=== PATIENT | female | born 1940 | race Caucasian/White ===

== ENCOUNTER 2018-07-21 17:42 | Inpatient (IN) | payer MEDICARE, OTHER ==
[~2018-07-21] VITALS: Ht 160 cm; Wt 49.9 kg
[~2018-07-21 17:42] MED LIST: ALBU8.5H8 INH; BECL8.7A7 INH; BUDE10.2 INH; BUSP5POW PO; CEFD300C37 PO; CETI10TA24 PO; CLIN150C14 PO; DOXY100T PO; ESOM40CA PO; FLUT16SP NAS; FLUT50DI INH; FORM12CA INH; GUAI200T3 PO; HYDROCHLOROTH12.5 MG PO; LEVO88TA4 PO; LISI1TAB5 PO; LISI5TAB7 PO; PANT40TA5 PO; PRED10TA PO; PRED20TA PO; RALO60TA PO; RALO60TA12 PO; SUCR1TAB PO; TIOT18CA INH; [UNRECOGNIZED DRUG - CODE] IV
--- NOTE | 2018-07-21 17:44 | NUR ---
EKG DONE ON ARRIVAL TO ROOM
--- NOTE | 2018-07-21 17:45 | NUR ---
PT BIB EMS TO ED WITH SOB AND COPD EXACERBATION FOLLOWING SINUS INFECTION X3 DAYS. PT ON HOSPICE WITH [facility]. CONNECTED TO ALL MONITORS. 10L NRB UPON ARRIVALWITH DECREASED O2 SAT. O2 INCREASED TO 15L. O2 SAT INCREASED TO >85%. ALL OTHER VSS. FRIEND/POA AT BEDSIDE. WILL CONTINUE TO MONITOR.
--- NOTE | 2018-07-21 18:34 | NUR ---
MD TO BEDSIDE FOR ASSESSMENT. ATTEMPTING TO CONTACT [facility] TO DISCUSS TREATMENT OPTIONS. VSS. CALL LIGHT WITHIN REACH.
[2018-07-21] MEDS ORDERED: ALBUTEROL/IPRATROPIUM 2.5MG/0.5MG, 3 ML NPPB ONE (19:30)
--- NOTE | 2018-07-21 19:30 | NUR ---
pt states that she would like to revoke hospice and be aggressively treated at this time. extensive education provided by myself and [facility]. [facility] hospice nurse notified of pt's wishes. pt remains on 15L NRB with sats >85%. call light within reach. will continue to monitor.
[2018-07-21] MEDS ORDERED: ALBUTEROL/IPRATROPIUM 2.5MG/0.5MG, 3 ML ONE (19:36)
[2018-07-21 19:52] LABS: BASOPHILS # (AUTO) 0.03 x10^3/uL (0-0.1); BASOPHILS % (AUTO) 0 % (0-1); EOSINOPHILS # (AUTO) 0.01 x10^3/uL (0-0.4); EOSINOPHILS % (AUTO) 0 % (1-7); LYMPHOCYTES # (AUTO) 1.26 x10^3/uL (1-3.4); LYMPHOCYTES % (AUTO) 12 % (22-44); MD NO; MEAN CORPUSCULAR HEMOGLOBIN 31.4 pg (27.0-34.8); MEAN CORPUSCULAR HGB CONC 32.9 g/dL (32.4-35.8); MEAN CORPUSCULAR VOLUME 95.6 fL (80-100); MEAN PLATELET VOLUME 7.9 fL (7.4-10.4); MONOCYTES # (AUTO) 1.02 x10^3/uL (0.2-0.8); MONOCYTES % (AUTO) 10 % (2-9); NEUTROPHILS # (AUTO) 8.36 x10^3/uL (1.8-6.8); NEUTROPHILS % (AUTO) 78 % (42-75); PLATELET COUNT 272 x10^3/uL (130-400); RED BLOOD COUNT 5.51 x10^6/uL (3.82-5.3); RED CELL DISTRIBUTION WIDTH 15.2 % (9.6-15.2)
[2018-07-21 19:57] LABS: ALBUMIN 3.1 g/dL (3.4-5.0); ANION GAP 10 mmol/L (5-15); CALCIUM 8.7 mg/dL (8.5-10.1); CHLORIDE 101 mmol/L (98-107)
--- NOTE | 2018-07-21 20:04 | NUR ---
after md assessment and inpatient treatment recommednation, pt was under the impression that she could be treated inpatient without any changes in hospice. md explained that being treated here would revoke hospice care. this rn contacted cynthia at [facility] for clarification. cynthia stated that she may be treated in the ed and then discharged to home without any changes to hospice care. any stay, inpatient or just for observation, would automatically revoke hospice and care would be discountinued. the pt could, however, reapply for hospice care upon discharge from [facility]. cynthia also stated that thispt was not able to walk to the restroom or to prepare food, and that there was minimal food in her home. this rn educated pt and friend at bedside. pt then requested further clarification from [facility]. edmd extensively educated pt and friend at bedside on hospice care and how a hospital admission would impact that care. after thourough discussion with pt, friend, this rn and edmd, pt decided to revoke hospice care at this time and be aggressively treated. cynthia at [facility] was notified and treatment was started.
[2018-07-21] MEDS ORDERED: ASPIRIN 81 MG TABLET CHEW ONE (20:20)
--- NOTE | 2018-07-21 20:23 | NUR ---
pt resting in bed with friend at bedside. vaa, no distress noted. call light within reach.
--- NOTE | 2018-07-21 20:27 | NUR ---
new lab orders received. awaiting cards consult.
[2018-07-21] MEDS ORDERED: ASPIRIN 81 MG TABLET CHEW PO ONE (20:30)
[2018-07-21] MEDS: methylPREDNISolone SOD SUCC 125 MG/2 ML IVPush SCH (21:00)
[2018-07-21] MEDS ORDERED: ONDANSETRON ODT 4 MG PO PRN (21:00)
[2018-07-21] MEDS ORDERED: NITROGLYCERIN 0.4 MG BOTTLE (25 TABS) SL PRN (21:00)
[2018-07-21] MEDS ORDERED: HEPARIN 5,000 UNITS/ML, 1ML IV PRN (21:00)
[2018-07-21] MEDS ORDERED: methylPREDNISolone SOD SUCC 125 MG/2 ML IVPush ONE (21:00)
[2018-07-21] MEDS ORDERED: HEPARIN 25,000 UNITS/500ML PMX 500 ML IV PRN (21:00)
[2018-07-21] MEDS ORDERED: TEMPLATE NON-FORMULARY MED. (Budesonide/Formoterol Fumarate (Symbicort 160-4.5 Mcg Inhaler INH SCH (21:00)
[2018-07-21] MEDS ORDERED: POLYETHYLENE GLYCOL 17 GM PACKET PO PRN (21:00)
[2018-07-21] MEDS ORDERED: morphine SULFATE 10 MG/ML, 1ML IVPush PRN (21:00)
[2018-07-21] MEDS ORDERED: HEPARIN 5,000 UNITS/ML, 1ML IV ONE (21:00)
[2018-07-21] MEDS ORDERED: ACETAMINOPHEN 325 MG TABLET PO PRN (21:00)
[2018-07-21] MEDS ORDERED: BISACODYL 10 MG SUPP PR PRN (21:00)
[2018-07-21] MEDS: FLUTICASONE NASAL SPRAY 16GM NAS SCH (21:00)
[2018-07-21] MEDS ORDERED: HEPARIN 5,000 UNITS/ML, 1ML SQ SCH (21:00)
[2018-07-21] MEDS ORDERED: HEPARIN 5,000 UNITS/ML, 1ML ONE (21:03)
[2018-07-21] MEDS ORDERED: HEPARIN 25,000 UNITS/500ML PMX 500 ML ONE (21:05)
[2018-07-21] MEDS: SODIUM CHLORIDE FLUSH 10ML SYR IVF SCH (21:07)
--- NOTE | 2018-07-21 21:12 | NUR ---
WEIGHT BASED HEPARIN PROTOCOL VERIFIED WITH PHARMACY PRIOR TO INITIATION. HEPARIN GTT VERIFIED AT BEDSIDE UPON ADMINISTRATION BY SAME BY THIS RN AND JESENIA KOHLER RN. PT RESTING IN BED. VSS. CALL LIGHT WITHIN REACH.
--- NOTE | 2018-07-21 21:30 | NUR ---
rt changed hfnc settings to 50% and 30L. vss at this time.
--- NOTE | 2018-07-21 21:49 | NUR ---
report to joce. pt ready for transport.
--- NOTE | 2018-07-21 21:52 | NUR ---
rt paged for pt transport. instructed to place nrb on 15L for transfer. rt will place on hfnc upon arrival to floor.
[2018-07-21 22:30] VITALS: BP 122/65
[2018-07-21] MEDS ORDERED: BUDESONIDE 0.5 MG/2 ML INHA NPPB SCH (23:00)
[2018-07-21] MEDS: PANTOPROZOLE 40MG TABLET PO SCH (23:32)
[2018-07-21] MEDS: RALOXIFENE 60 MG TABLET PO SCH (23:32)
[2018-07-22 02:17] VITALS: BP 132/66
[2018-07-22] MEDS ORDERED: ALBUTEROL SULFATE 2.5 MG/3 ML NPPB SCH (03:00)
[2018-07-22 03:09] LABS: BASOPHILS % (AUTO) 0 % (0-1); EOSINOPHILS # (AUTO) 0.01 x10^3/uL (0-0.4); EOSINOPHILS % (AUTO) 0 % (1-7); LYMPHOCYTES # (AUTO) 0.52 x10^3/uL (1-3.4); LYMPHOCYTES % (AUTO) 6 % (22-44); MD NO; MEAN CORPUSCULAR HEMOGLOBIN 31.5 pg (27.0-34.8); MEAN CORPUSCULAR HGB CONC 33.1 g/dL (32.4-35.8); MEAN PLATELET VOLUME 7.7 fL (7.4-10.4); MONOCYTES # (AUTO) 0.23 x10^3/uL (0.2-0.8); MONOCYTES % (AUTO) 3 % (2-9); NEUTROPHILS # (AUTO) 8.56 x10^3/uL (1.8-6.8); NEUTROPHILS % (AUTO) 92 % (42-75); PLATELET COUNT 263 x10^3/uL (130-400)
[2018-07-22] MEDS: methylPREDNISolone SOD SUCC 125 MG/2 ML IVPush SCH ×3 (05:55→21:14)
[2018-07-22] MEDS: ASPIRIN 81 MG TABLET CHEW PO SCH (05:55)
[2018-07-22] MEDS: LEVOTHYROXINE 75 MCG TABLET PO SCH (05:55)
[2018-07-22 06:26] VITALS: BP 116/78
[2018-07-22] MEDS: ALBUTEROL/IPRATROPIUM 2.5MG/0.5MG, 3 ML NPPB SCH ×4 (06:40→19:35)
[2018-07-22 08:25] LABS: ANION GAP 9 mmol/L (5-15); CHLORIDE 104 mmol/L (98-107)
[2018-07-22 08:28] LABS: ALANINE AMINOTRANSFERASE 133 U/L (12-78); ALKALINE PHOSPHATASE 129 U/L (45-117); BILIRUBIN,TOTAL 0.5 mg/dL (0.2-1.0); CREATININE 1.13 mg/dL (0.55-1.02); TOTAL PROTEIN 6.7 g/dL (6.4-8.2)
[2018-07-22] MEDS: TEMPLATE NON-FORMULARY MED. (Tiotropium Bromide** (Spiriva**) 18 MCG) INH SCH (08:28)
[2018-07-22] MEDS: SODIUM CHLORIDE FLUSH 10ML SYR IVF SCH ×2 (08:29→21:15)
[2018-07-22] MEDS: SENNA/DOCUSATE TABLET PO SCH (08:29)
[2018-07-22] MEDS: HYDROCHLOROTHIAZIDE 12.5 MG CAPSULE PO SCH (08:29)
[2018-07-22] MEDS: BUSPIRONE 5 MG TABLET PO SCH (08:30)
[2018-07-22] MEDS: PANTOPROZOLE 40MG TABLET PO SCH ×2 (08:30→21:14)
[2018-07-22] MEDS: LISINOPRIL 5 MG TABLET PO SCH (08:30)
[2018-07-22] MEDS ORDERED: BUDESONIDE 0.5 MG/2 ML INHA INH SCH (09:00)
[2018-07-22] MEDS: FLUTICASONE NASAL SPRAY 16GM NAS SCH ×2 (11:20→21:14)
[2018-07-22] MEDS ORDERED: FLUT1BLS INH (11:56)
[2018-07-22] MEDS ORDERED: UMEC62.5 INH (11:56)
[2018-07-22 12:16] VITALS: BP 112/66
[2018-07-22] MEDS ORDERED: ASPI-515 PO (13:29)
[2018-07-22 19:03] VITALS: BP 101/61
[2018-07-22] MEDS: RALOXIFENE 60 MG TABLET PO SCH (21:14)
[2018-07-23 00:45] VITALS: BP 107/71
[2018-07-23] MEDS: LEVOTHYROXINE 75 MCG TABLET PO SCH (05:10)
[2018-07-23] MEDS: ASPIRIN 81 MG TABLET CHEW PO SCH (05:10)
[2018-07-23] MEDS: methylPREDNISolone SOD SUCC 125 MG/2 ML IVPush SCH ×2 (05:11→14:00)
[2018-07-23] MEDS: ALBUTEROL/IPRATROPIUM 2.5MG/0.5MG, 3 ML NPPB SCH (07:00)
[2018-07-23] MEDS ORDERED: BUDESONIDE 0.5 MG/2 ML INHA ONE (07:10)
[2018-07-23 07:11] VITALS: BP 124/77
[2018-07-23] MEDS ORDERED: CEFTRIAXONE PMX 1GM/50ML 50 ML IV ONE (08:30)
[2018-07-23] MEDS: PANTOPROZOLE 40MG TABLET PO SCH (08:38)
[2018-07-23] MEDS: HYDROCHLOROTHIAZIDE 12.5 MG CAPSULE PO SCH (08:38)
[2018-07-23] MEDS: SODIUM CHLORIDE FLUSH 10ML SYR IVF SCH (08:39)
[2018-07-23] MEDS: LISINOPRIL 5 MG TABLET PO SCH (08:39)
[2018-07-23] MEDS: TEMPLATE NON-FORMULARY MED. (Tiotropium Bromide** (Spiriva**) 18 MCG) INH SCH (08:39)
[2018-07-23] MEDS: BUSPIRONE 5 MG TABLET PO SCH (08:39)
[2018-07-23] MEDS: SENNA/DOCUSATE TABLET PO SCH (08:40)
[2018-07-23] MEDS: FLUTICASONE NASAL SPRAY 16GM NAS SCH (08:41)
[2018-07-23] MEDS ORDERED: BUDESONIDE 0.5 MG/2 ML INHA NPPB SCH (09:00)
[2018-07-23 13:40] VITALS: BP 106/66
[2018-07-23 14:54] LABS: MICROSCOPIC AUTO
[2018-07-23 15:03] LABS: CULTURE INDICATED? YES
== END 2018-07-23 16:58 | disposition hospice, inpatient (51) | DRG 280 ==
LOC: ED 18:50 → EDIP 20:59 → 5SO 22:23
PROVIDERS: ADMIT Hospitalist; ATTEND Hospitalist
DX: I21.4 Non-ST elevation (NSTEMI) myocardial infarction (principal); J96.21 Acute and chronic respiratory failure with hypoxia; E87.1 Hypo-osmolality and hyponatremia; N39.0 Urinary tract infection, site not specified; D75.1 Secondary polycythemia; E03.9 Hypothyroidism, unspecified; E88.01 Alpha-1-antitrypsin deficiency; I10 Essential (primary) hypertension; I27.20 Pulmonary hypertension, unspecified; I34.0 Nonrheumatic mitral (valve) insufficiency; I73.9 Peripheral vascular disease, unspecified; K21.9 Gastro-esophageal reflux disease without esophagitis; Z51.5 Encounter for palliative care; Z66 Do not resuscitate; J44.9 Chronic obstructive pulmonary disease, unspecified; Z87.891 Personal history of nicotine dependence; Z99.81 Dependence on supplemental oxygen; Z87.440 Personal history of urinary (tract) infections; Z88.1 Allergy status to other antibiotic agents; Z88.0 Allergy status to penicillin; Z90.49 Acquired absence of other specified parts of digestive tract
CPT/HCPCS: 36415; 36600; 71045; 80048; 80053; 81001; 82040; 82803; 83880; 84484; 85025; 85520; 87077; 87086; 87186; 93005; 93306; 94640; 96365; G0378; J0696; J1644; J7620; J7626; J2930

== ENCOUNTER 2018-07-27 19:00 | Emergency (ER) | payer MEDICARE, OTHER ==
[~2018-07-27] VITALS: Ht 160 cm; Wt 51.0 kg
[~2018-07-27 19:00] MED LIST changes: +ASPI-515 PO; +FLUT1BLS INH; +UMEC62.5 INH
[2018-07-27] MEDS ORDERED: ALBUTEROL/IPRATROPIUM 2.5MG/0.5MG, 3 ML ONE (19:04)
[2018-07-27] MEDS ORDERED: methylPREDNISolone SOD SUCC 125 MG/2 ML ONE (19:24)
[2018-07-27] MEDS ORDERED: ALBUTEROL/IPRATROPIUM 2.5MG/0.5MG, 3 ML NPPB PRN (19:30)
[2018-07-27] MEDS ORDERED: methylPREDNISolone SOD SUCC 125 MG/2 ML IVP ONE (19:30)
[2018-07-27] MEDS ORDERED: SODIUM CHLORIDE FLUSH 10ML SYR IVF ONE (19:30)
[2018-07-27] MEDS ORDERED: ALBUTEROL/IPRATROPIUM 2.5MG/0.5MG, 3 ML NPPB ONE (19:30)
--- NOTE | 2018-07-27 19:34 | NUR ---
PRECEPTOR NOTE: PT ARINA, REPORT RECEIVED FROM EMS. PT PRESENTS TO ED WITH C/O SOB AND "FEELING COLD" STARTING THIS PM. PT WAS DC'D FROM THIS HOSPITAL 4 DAYS AGO FOR COPD EXACERBATION. PT DENIES PAIN AT THIS TIME. PIV PLACED, 300CC NS INFUSED BY EMS EVAPORATOR REPAIRER. PER EMS, PT'S BP WAS 70/30 AND SPO2 70% WEARING OXYGEN AT 8L/MIN EVAPORATOR REPAIRER, UPON ARRIVAL PT'S BP 125/67. PT ARRIVED WEARING OXYGEN AT 15L/MIN VIA NON-REBREATHER MASK WITH SPO2 98%. PT STATES SHE WAS DC'D FROM THIS HOSPITAL WITH HOME OXYGEN AT 8L/MIN. PT IS A&OX4, RESPS EVEN AND UNLABORED. SINUS TACH RATE 90'S WITH NO ECTOPY NOTED ON EQUITIES TRADER. EKG TAKEN BY EDT ON ARRIVAL. CALL LIGHT IN REACH. AWAITING CXR, LAB RESULTS AND RT TX AT THIS TIME.
[2018-07-27 19:39] LABS: MEAN CORPUSCULAR HEMOGLOBIN 31.1 pg (27.0-34.8); MEAN CORPUSCULAR HGB CONC 32.9 g/dL (32.4-35.8); MEAN CORPUSCULAR VOLUME 94.4 fL (80-100); MEAN PLATELET VOLUME 7.5 fL (7.4-10.4); PLATELET COUNT 248 x10^3/uL (130-400); RED BLOOD COUNT 5.34 x10^6/uL (3.82-5.3); RED CELL DISTRIBUTION WIDTH 14.8 % (9.6-15.2)
[2018-07-27] MEDS ORDERED: BUSP10TA PO (19:42)
[2018-07-27 19:48] LABS: ALANINE AMINOTRANSFERASE 43 U/L (12-78); ALBUMIN 2.5 g/dL (3.4-5.0); ANION GAP 6 mmol/L (5-15); CALCIUM 7.9 mg/dL (8.5-10.1); CHLORIDE 100 mmol/L (98-107)
--- NOTE | 2018-07-27 19:50 | NUR ---
PT DECLINING RT TX AT THIS TIME. PT A&O, RESPS EVEN AND UNLABORED. OXYGEN TITRATED DOWN TO 12L/MIN VIA NON-REBREATHER.
[2018-07-27 19:52] LABS: ALKALINE PHOSPHATASE 83 U/L (45-117); BILIRUBIN,TOTAL 0.6 mg/dL (0.2-1.0); CREATININE 1.02 mg/dL (0.55-1.02); TOTAL PROTEIN 5.3 g/dL (6.4-8.2)
[2018-07-27 19:54] LABS: BASOPHILS # (AUTO) 0.02 x10^3/uL (0-0.1); BASOPHILS % (AUTO) 0 % (0-1); EOSINOPHILS # (AUTO) 0.11 x10^3/uL (0-0.4); EOSINOPHILS % (AUTO) 1 % (1-7); LYMPHOCYTES # (AUTO) 0.96 x10^3/uL (1-3.4); LYMPHOCYTES % (AUTO) 7 % (22-44); MD SCAN; MONOCYTES % (AUTO) 5 % (2-9); NEUTROPHILS # (AUTO) 11.62 x10^3/uL (1.8-6.8); NEUTROPHILS % (AUTO) 87 % (42-75)
[2018-07-27 19:59] LABS: TROPONIN I 0.448 ng/mL (0.000-0.045)
--- NOTE | 2018-07-27 20:18 | NUR ---
PT RESTING IN [facility]. PT AOX4. RESPS EVEN AND UNLABORED. PT'S SPO2 95% WITH 12L/MIN AT THIS TIME. PT STATES "I FEEL MUCH BETTER." AT THIS TIME. ALL MONITORS IN PLACE. CALL LIGHT WITHIN REACH.
--- NOTE | 2018-07-27 21:00 | NUR ---
PT AMB IN ROOM WITH STEADY GAIT WITH OXY.
--- NOTE | 2018-07-27 21:22 | NUR ---
PT SLEEPING IN [facility]. ALL MONITORS IN PLACE. PT DENIES PAIN AT THIS TIME. CALL LIGHT WITHIN REACH.
--- NOTE | 2018-07-27 21:50 | NUR ---
POC discussed with MD Tavares. plans to dc pt with hospice. pt states she is locked out of house. packing machine feeder Josué contacted who states that he is able to get pt back into house using lockbox placed by hospice. Pt states no friends/family able to provide transport home at this time. packing machine feeder states hospice does not provide transport home. [employer] RN notified pt is in need of medical transport due to oxygen requirements.
--- NOTE | 2018-07-27 22:08 | NUR ---
PT PROVIDED BEDSIDE COMMODO TO URINATE.
--- NOTE | 2018-07-27 22:32 | NUR ---
IRINEO RN CALLED FROM [facility] AND SHE WILL BE THERE AT THE PATIENTS HOME TO OPEN THE DOOR AND GET HER IN THE HOUSE. IRINEO [phone]
[2018-07-27 23:26] VITALS: BP 133/88
--- NOTE | 2018-07-27 23:27 | NUR ---
pt given dc instructions. pt a&o, resps even and unlabored. no complaint at dc. piv dc'd with tip intact. report given at bedside to [facility] engineering model maker transport. pt taken home with [facility] transport, trust evaluation supervisor contacted to meet pt at home.
== END 2018-07-27 23:28 | disposition home or self-care (01) ==
LOC: ED 19:53
DX: J44.9 Chronic obstructive pulmonary disease, unspecified (principal); J96.10 Chronic respiratory failure, unspecified whether with hypoxia or hypercapnia; I25.2 Old myocardial infarction; I10 Essential (primary) hypertension; Z90.49 Acquired absence of other specified parts of digestive tract
CPT/HCPCS: 36415; 71045; 80053; 83880; 84484; 85025; 93005; 96374; 99284; J2930